=== PATIENT | female | born 1960 | race Caucasian/White ===

== ENCOUNTER → 2016-10-15 | Outpatient (CLI) | payer OTHER ==
[2016-10-15 09:05] LABS: HEMOGLOBIN 13.5 g/dL (12.0-16.0); MEAN CORPUSCULAR HEMOGLOBIN 28.7 PG (27-31); MEAN CORPUSCULAR HGB CONC 32.9 g/dL (33-37); RDW COEFFICIENT OF VARIATION 13.7 % (11.5-14.5); RED BLOOD COUNT 4.71 10^6/uL (4.20-5.40); WHITE BLOOD COUNT 5.33 10^3/uL (4.8-10.8)
[2016-10-15 09:15] LABS: ASPARTATE AMINO TRANSFERASE 24 IU/L (8-39); BILIRUBIN,TOTAL 0.5 mg/dL (0.3-1.2); BLOOD UREA NITROGEN 13 mg/dL (7-22); BUN/CREATININE RATIO 16.25 (6-20); CALCIUM 9.5 mg/dL (8.7-10.7); CHLORIDE 105 meq/L (98-112); CREATININE 0.8 mg/dL (0.50-1.20); EST GLOMERULAR FILTRATION > 60 (>60 ml/min/1.73m(2)); GLUCOSE 91 mg/dL (78-110); HDL CHOLESTEROL 86 mg/dL (40-150); POTASSIUM 4.2 meq/L (3.8-5.2); SODIUM 140 meq/L (135-145); TOTAL PROTEIN 7.6 g/dL (6.1-8.0); TRIGLYCERIDES 68 mg/dL (44-200)
[2016-10-15 09:42] LABS: HEMOGLOBIN A1C 5.25 % (4.2-6.0); MEAN BLOOD GLUCOSE (CALC) 88.825 mg/dL
== END ==
LOC: LAB 08:43
PROVIDERS: ATTEND Nurse Practitioner Family
DX: E78.5 Hyperlipidemia, unspecified (principal); M85.80 Other specified disorders of bone density and structure, unspecified site; G35 Multiple sclerosis; M17.0 Bilateral primary osteoarthritis of knee
CPT/HCPCS: 36415; 80053; 80061; 82306; 83036; 84443; 85027

== ENCOUNTER 2017-02-08 05:58 | Day surgery (SDC) | payer OTHER ==
[2017-02-08] MEDS ORDERED: Clindamycin 900mg (Premix) 50 ML IV ONE (06:02)
[2017-02-08] MEDS ORDERED: Lactated Ringers 1,000 ML PRIMARY IV ONE (06:02)
[2017-02-08] MEDS ORDERED: LIDOCAINE W/ SODIUM BICARB 0.5 ML SYR ONE (06:02)
[2017-02-08] MEDS ORDERED: Lidocaine Inj 1% 20 ML ONE (07:14)
[2017-02-08] MEDS ORDERED: BUPivacaine Inj 0.5% PF (5mg/ml) 10ml vial ONE (07:14)
[2017-02-08] MEDS ORDERED: MIDAZOLAM 5 MG/1 ML ONE (07:16)
[2017-02-08] MEDS ORDERED: fentaNYL Inj 100 MCG/2 ML VIAL ONE (07:17)
[2017-02-08] MEDS ORDERED: BETAMET ACET/BETAMET NA PH 6 MG/1 ML - 5 ML ONE (07:55)
[2017-02-08] MEDS ORDERED: KETOROLAC 30 MG/1 ML VIAL ONE (07:57)
[2017-02-08] MEDS ORDERED: NORMAL SALINE 10 ML SYRINGE FLUSH IVP PRN (08:34)
[2017-02-08 08:42] VITALS: RESP 12; TEMP 97.4
--- NOTE | 2017-02-08 08:44 | GEN.OPNOTE ---
Operative Report Surgeon: William Ly DPM Anesthesia Type: Local, MAC Anesthesia Provider: Al Cope CRNA Surgery Date: 02/08/17 Preoperative Diagnosis: 1. 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 2. Plantar neuroma of right foot - G57.61. 3. Right foot pain - M79.671 Postoperative Diagnosis: 1. Plantar neuroma of right foot - G57.61. 2. Right foot pain sub 5th MTH - M79.671 Procedure: 1. Excision of tumor, subfascial plantar right foot neuroma. Estimated Blood Loss (mL): 0 (a pneumatic cuff was used about the right ankle for 48 minutes at 250 mmHg pressure.) Fluids: 900 mg of clindamycin preoperatively. 600 mL lactated Ringer's. Local block with 0.5% Marcaine +1% lidocaine plain. Complications: None Findings at Surgery: Enlarged plantar nerve tissue running beneath the fifth metatarsal head. Indications for the Procedure: Chronic pain beneath the right fifth metatarsal head. Description of Procedure: The patient was brought to the operating room and placed in the supine position. The foot was prepped and draped in the usual sterile fashion. A timeout was performed. The area of concern was marked on the foot. The foot was then exsanguinated with an elastic Esmarch, after which a pneumatic cuff was inflated about the ankle to 250 mmHg pressure. A lateral incision along the fifth metatarsophalangeal joint was made and carefully dissected deep to the joint capsule. This dense connective tissue was then followed plantarly maintaining the plantar fat pad. Beneath the fifth metatarsal head a plantar nerve was noted to cross from deep proximal medial to distal lateral of the plantar fifth metatarsophalangeal joint. This nerve or neuroma could be rolled underneath the thumb when pressed against the skin. It was dissected free and retracted, and then the same pressure is applied to the plantar fifth metatarsal without of the same palpable lesion. The neuroma was then dissected free distally at the level of the proximal phalanx and cut, and then followed back into the fourth intermetatarsal space at approximately the level of the midshaft and cut. Lesion was then submitted to pathology. The wound was irrigated. 3 mg of Celestone Soluspan was injected at the proximal cut end of the neuroma and the fourth and metatarsal space. The wound was then closed. 4- 0 Vicryl was used to close the plantar fat pad and subcutaneous tissues. The skin was closed with 4-0 nylon in a running septic her fashion. An force with Mastisol and Steri-Strips. And a dressing of Xeroform, fluffs, Kerlix, and Coban was applied. Pneumatic cuff was released from the right ankle after 40 minutes total time. And capillary return was noted all toes. The patient was returned to recovery.
[2017-02-08] MEDS ORDERED: CELECOXIB 200 MG CAPSULE PO ONE ×3 (08:50→10:44)
== END 2017-02-08 10:40 | disposition home or self-care (01) ==
LOC: SDSC 05:58
PROVIDERS: ATTEND Podiatrist Foot & Ankle Surgery
DX: D21.21 Benign neoplasm of connective and other soft tissue of right lower limb, including hip (principal); G57.61 Lesion of plantar nerve, right lower limb; M79.671 Pain in right foot
CPT/HCPCS: 28080; J0702; J1885; J2704; J3010; J2001; J2250; J3490; J7120